=== PATIENT | male | born 1995 | race Two or more races ===

== ENCOUNTER → 2024-05-06 08:00 | Outpatient (CLI) | payer OTHER ==
[~2024-05-06 08:00] MED LIST: METOPROLOL; OLMESARTAN
== END | disposition home or self-care (01) ==
LOC: EKG 08:00 → ADM 09:45 → CIR.AMB 05-08 09:45 → EDSTATUS 05-08 09:45
PROVIDERS: ATTEND Surgery
DX: I10 Essential (primary) hypertension (principal); K61.0 Anal abscess; D12.2 Benign neoplasm of ascending colon; D12.3 Benign neoplasm of transverse colon

== ENCOUNTER 2024-08-14 05:00 | Day surgery (SDC) | payer OTHER ==
[2024-08-07 14:16] VITALS: BP 143/78
[~2024-08-14] VITALS: Ht 167.6 cm; Wt 142.9 kg
[2024-08-14] MEDS ORDERED: BUPIVACAINE HCL/MPF 0.5% 30ML VIAL ONE (07:00)
[2024-08-14] MEDS ORDERED: DIBUCAINE 30 GM TUBE ONE (07:00)
[2024-08-14] MEDS ORDERED: POVIDONE-IODINE 118 ML BOTT TOP ONE (07:00)
[2024-08-14] MEDS ORDERED: HEMOSTATIC MATRIX 1 KIT KIT TOP ONE (07:00)
[2024-08-14] MEDS ORDERED: LIDOCAINE HCL 1%/EPINEPHRINE 20ML VIAL IJ ONE (07:00)
[2024-08-14] MEDS ORDERED: CEFTRIAXONE SODIUM 2,000 MG VIAL ONE (07:01)
[2024-08-14] MEDS ORDERED: METRONIDAZOLE/SODIUM CHLORIDE 500 MG/100 ML PIGGYBACK IV ONE (07:01)
[2024-08-14] MEDS ORDERED: PERCOCET 5-3251 EACH PO (08:10)
[2024-08-14] MEDS ORDERED: RECTICARE30 GM TOP (08:11)
== END 2024-08-14 12:20 | disposition home or self-care (01) ==
LOC: CIR.AMB 05:00
PROVIDERS: ATTEND Surgery
DX: K60.30 Anal fistula, unspecified (principal); D12.2 Benign neoplasm of ascending colon; D12.3 Benign neoplasm of transverse colon; I10 Essential (primary) hypertension